=== PATIENT | male | born 1985 | race Two or more races ===

== ENCOUNTER 2017-10-15 10:25 | Emergency (ER) | payer BC ==
[~2017-10-15] VITALS: Ht 195.6 cm; Wt 79.4 kg
[2017-10-15 10:49] VITALS: BP 134/89
== END 2017-10-15 11:23 | disposition home or self-care (01) ==
LOC: ER 10:29
DX: J30.9 Allergic rhinitis, unspecified (principal)
CPT/HCPCS: A4606; Z7610